=== PATIENT | female | born 1970 | race Caucasian/White ===

== ENCOUNTER 2017-12-02 22:49 | Observation (INO) | payer SELFPAY ==
[2017-12-02 22:50] VITALS: BP 152/102; PULSE 75; RESP 14; TEMP 36.7; O2SAT 100; BMI 28.0
[2017-12-02 23:16] VITALS: PULSE 72; RESP 15; O2SAT 99
[2017-12-02] MEDS: 0.9% Normal Saline 1,000 ML 1000 ML IV (23:22)
[2017-12-02 23:34] LABS: Absolute Lymphocyte Count 2.65 X10^3/ul (0.83-4.51); Absolute Neutrophil Count 5.4 X10^3/uL (2.0-7.7); Basophil# 0.07 X10^3/uL; Basophil% 0.8 % (0-1); Eosinophils% 1.1 % (0-5); Hematocrit 34.9 % (37-47); Hemoglobin 11.5 g/dl (12.0-15.0); Lymphocyte # 2.65 X10^3/ul (4.0); Lymphocyte % 29.5 % (19-41); Mean Corpuscular Hgb 29.3 pg (27.0-32.0); Mean Corpuscular Volume 88.8 fL (81-99); Mean Platelet Vol. 12.2 fl (6.2-12.0); Monocyte# 0.79 X10^3/uL; Monocyte% 8.8 % (0-10); Neutrophil # 5.36 X10^3/uL (2.7-7.7); Neutrophil % 59.7 % (47-70); Platelet Count 169 K/mm3 (150-450); RBC Distribution Width CV 12.3 % (11.6-14.6); RBC Distribution Width SD 38.8 fl (35.1-43.9); Red Blood Count 3.93 M/mm3 (4.2-5.4)
[2017-12-02 23:43] LABS: POSITIVE COUNT NO; POSITIVE DIFFERENTIAL NO; POSITIVE MORPHOLOGY NO
[2017-12-02 23:47] LABS: ALB/GLOB Ratio 1.1 RATIO (0.9-2.4); AST(SGOT) 7 U/L (15-37); Alanine Aminotransfer ALT/SGPT 21 U/L (13-56); Albumin, Serum 3.8 g/dL (3.2-5.0); Alkaline Phosphatase 64 U/L (45-117); Anion Gap 7 (5-15); BUN 19 mg/dL (7-18); BUN/Creat Ratio 27.1 RATIO (10-20); Calcium,Total 8.4 mg/dL (8.5-10.1); Chloride 102 mmol/L (98-107); EST Glomerular Filtration Rate 95 mL/min (>60); Est Glom Filt Rate - Afr Amer 115 mL/min (>60); Estimated Creatinine Clearance 82.19 ml/min; Globulin 3.4 g/dL (2.2-4.2); Glucose 95 mg/dL (74-106); Lipase 137 U/L (73-393); Potassium 3.7 mmol/L (3.5-5.1); Protein, Total 7.2 g/dL (6.4-8.2); Sodium Level 137 mmol/L (136-145)
[2017-12-03] VITALS (16 sets, daily range): BP systolic 134–179; BP diastolic 77–104; PULSE 69–100; RESP 14–20; TEMP 36.1–37.1; O2SAT 14–100; BMI 28.0; BMI 28.8
[2017-12-03] MEDS: Ketorolac 30 MG/ML Syringe IV (00:39)
--- NOTE | 2017-12-03 01:01 | CT_ITS ---
STUDY: CT ABDOMEN AND PELVIS WITH CONTRAST REASON FOR EXAM: Female, 47 years old. Epigastric pain RADIATION DOSAGE (If Supplied By Facility): CTDIvol = ( 11.73 ) mGy, DLP = ( 674.92 ) mGycm TECHNIQUE: Transaxial images were obtained from the dome of the diaphragm to the symphysis pubis without oral contrast. 100ML ml of Isovue 300 contrast was administered. Sagittal and coronal images were reconstructed. Individualized dose optimization techniques were used for this CT. COMPARISON: 12/12/2015 FINDINGS: Mild dependent atelectasis versus scar formation at the lung bases. The visualized portions of the heart are within normal limits. Normal liver. Mild distention of the gallbladder with a small amount of pericholecystic fluid. Mild intrahepatic bile duct dilatation. Normal spleen. Normal pancreas. Normal bilateral adrenal glands. Hypoattenuated lesions of the lateral right lower and mid left renal poles, too small to characterize. Ureters are normal. Normal visualized stomach. Normal small intestine. Normal colon. The appendix is visualized and appears normal. Normal abdominal aorta. Normal inferior vena cava. Normal retroperitoneum. Normal urinary bladder. Uterus surgically absent. There is a 3.4 cm hypoattenuated lesion associated with the right adnexa. Trace free pelvic fluid. Normal abdominal wall. Normal osseous structures. CT/Abdomen/Pelvis W IV Cont ONLY IMPRESSION: 1. Mild distention of the gallbladder with subtle pericholecystic fluid, potentially representing acute cholecystitis. Dedicated right upper quadrant ultrasound imaging is recommended for further characterization. 2. Hypoattenuated lesions within both kidneys, too small to definitively characterize but likely representing cysts. MR imaging could be obtained for further characterization. 3. 3.4 cm right ovarian cyst with trace amount of free pelvic fluid. Electronically Signed: Kevin Beck MD at 2:29 EST Tel , Service support ,
--- NOTE | 2017-12-03 02:36 | US_ITS ---
STUDY: ULTRASOUND GALLBLADDER REASON FOR VISIT: Female, 47 years old. Abdominal pain TECHNIQUE: Ultrasound evaluation of the gallbladder was performed with real-time and static cervantes-scale imaging. TECHNICAL QUALITY: Adequate. COMPARISON: None. FINDINGS: There is pericholecystic fluid collection around the gallbladder but there are no gallstones. The gallbladder wall measures 2.4 mm. The lumbar duct is 5.8 mm in diameter. There is no choledocholithiasis. The right kidney is normal. . US/Gallbladder IMPRESSION: Pericholecystic fluid collection. No gallstone. Possible acalculous cholecystitis Electronically Signed: Ty Schofield, at 4:08 EST Tel , Service support ,
[2017-12-03] MEDS: Ondansetron 4 MG/2 ML Vial IV ×3 (03:17→21:41)
--- NOTE | 2017-12-03 05:10 | ED.VISSUMM ---
- ER Visit Summary Date of Service: 12/03/17 Chief Complaint: Abdominal pain History of Present Illness: The patient is a 47 F who presents with abdominal pain. It is been present for 3 days. She complains of intermittent burning epigastric abdominal pain. She currently reports it as severe. It is worse with eating. She denies any nausea vomiting diarrhea. She denies fever. She denies any urinary symptoms. She states her symptoms are usually worse about 30 minutes after eating but it does not matter what she eats. She has had abdominal and stomach problems. She was previously placed on Prilosec but is not taking it anymore. Physical Examination: Afebrile vitals are unremarkable Moist mucous membranes Patient appears comfortable in no distress Heart regular rate and rhythm Lungs are clear Abdomen soft nondistended she does have some mild epigastric and right upper quadrant tenderness she does not have a Bernardo sign or Rovsing sign no guarding no rebound Test Results: CBC CMP lipase unremarkable. CT of the abdomen and pelvis shows mild gallbladder distention and subtle pericholecystic fluid. Right upper quadrant ultrasound shows pericholecystic fluid collection but no calculi normal gallbladder wall and common bile duct. Emergency Department Course and Treatment: The patient reports 10 out of 10 pain she actually was laughing while she said this and appears very comfortable. Initially with the patient's complaint of burning epigastric abdominal pain and previous diagnosis of GERD she was treated with a GI cocktail. However she reported no improvement. Point laboratory studies were added on patient was given IV Toradol. She had moderate improvement of symptoms. She had a normal right upper quadrant ultrasound 2 years ago with somewhat similar symptoms. She was initially sent for a CT. This did show some pericholecystic fluid so she was sent for right upper quadrant ultrasound which shows fluid but otherwise unremarkable. The patient has been joking with nursing staff and calling out from her room during her period of observation here. I did speak to general surgery client solutions specialist who will evaluate the patient here in the emergency department for further management. Treatment Plan: [] Disposition: Pending surgical consultation Impression: Right upper quadrant and epigastric abdominal pain Pericholecystic fluid This note was generated with [employer] dictation software. It may contain incorrect words, spelling, and punctuation that were not noted in review of the chart prior to signing ED Disposition - Plan for ED Patient: Chief Complaint: Abd Pain Referrals: Albin Padilla MD [Primary Care Provider] -
--- NOTE | 2017-12-03 06:05 | NURSING ---
dr hinton notified pt pain is 6 no orders given
--- NOTE | 2017-12-03 06:14 | PCM.HP.STD ---
Problem List (1) Acute acalculous cholecystitis Status: Acute History of Present Illness Date of Admission: 12/03/17 The patient is a 47 year old F who presents with 3 day history with severe epigastric pain right upper quadrant pain. She states that she has had problems with postprandial discomfort for many years. She had a laparoscopic-assisted vaginal hysterectomy performed [address] Wesley. The patient states that subsequent to that she has been having problems with postprandial discomfort. Records demonstrate that she has had previous emergency room visits for epigastric pain and previous ultrasound and testing if it has been unremarkable. On today's visit her CBC is unremarkable other than for a mild anemia of 11. Her liver function tests are normal. CT scan suggested fluid around the gallbladder. Ultrasound confirmed fluid around the gallbladder. There is a concern about possible acalculous cholecystitis. The patient is complaining of epigastric right upper quadrant pain with radiation to her back. She states that she has incessant nausea and epigastric pain. She states that she has seen Dr. Padilla in the past and is been placed on previous courses of proton pump inhibitors. The patient states that that provides absolutely no improvement. Patient states that she has not had health insurance to pursue definitive management. She has not been seen by gastroenterology. Currently she states that her pain is been ongoing for 3 days. So severe in the epigastrium that she had to crawl on all fours not able to find a comfortable position. She points to the epigastric and right upper quadrant area with radiation to the back. Although being given a GI cocktail and narcotics she is still in discomfort. She had a previous hospitalization January 22, 2017 with similar problems but etiology not identified. She states that currently she is not a tobacco user. There are records of previous use. 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 Denies: Hematochezia, Melena Genitourinary: Denies: Dysuria Gynecological: Denies: Breast symptoms Skin: Denies: Dryness Neurological: Denies: Balance problems Psychiatric: Reports: Anxiety VTE Information - Inpt Only VTE Present on Admission: No Patient Problems: Active and Suspected Problems Acute acalculous cholecystitis (Acute) - Physical Exam General: Alert, Oriented x3 HEENT: Atraumatic Oral: Moist Mucosa Neck: Supple Lungs: Clear to auscultation Cardiovascular: Regular rate, Regular Rhythm Abdomen: Bowel Sounds Present, Soft, Tender Extremities: No clubbing Skin: No rashes Musculoskeletal: No Tenderness to Palpation of Joints or Extremities Lymphatic: No Cervical, Supraclavicular, or Inguinal Adenopathy Neurological: Cranial nerves II-XII grossly intact Vital Signs Temp Pulse Resp BP Pulse Ox 98.2 F 76 17 167/100 H 97 12/03/17 05:53 12/03/17 05:53 12/03/17 05:53 12/03/17 05:53 12/03/17 05:53 Oxygen Delivery Method Room Air Weight: 158 lb Body Mass Index (BMI) 28.0 Laboratory Tests Past 24 Hrs 12/02/17 12/02/17 23:24 23:24 WBC 9.0 RBC 3.93 L Hgb 11.5 L Hct 34.9 L MCV 88.8 MCH 29.3 MCHC 33.0 RDW 12.3 RDW Differential 38.8 Plt Count 169 MPV 12.2 H Immature Gran % (Auto) 0.100 Neut % (Auto) 59.7 Lymph % (Auto) 29.5 [place] % (Auto) 8.8 Eos % (Auto) 1.1 Baso % (Auto) 0.8 Absolute Neuts (auto) 5.4 Absolute Lymphs (auto) 2.65 Total Counted Not Reportable Sodium 137 Potassium 3.7 Chloride 102 Carbon Dioxide 28.0 Anion Gap 7 BUN 19 H Creatinine 0.70 Estim Creat Clear Calc 82.19 Est GFR (MDRD) Af Amer 115 Est GFR (MDRD) Non-Af 95 BUN/Creatinine Ratio 27.1 H Glucose 95 Calcium 8.4 L Total Bilirubin 0.20 AST 7 L ALT 21 Alkaline Phosphatase 64 Total Protein 7.2 Albumin 3.8 Globulin 3.4 Albumin/Globulin Ratio 1.1 Lipase 137 Assessment/Plan Active and Suspected Problems Acute acalculous cholecystitis (Acute) 47-year-old female who for years has had postprandial epigastric pain right upper quadrant pain nausea vomiting. She was even hospitalized a year ago. Despite the utilization of proton pump inhibitors she is received no relief. On this presentation she again has postprandial epigastric right upper quadrant pain with radiation to her back. Although white count is normal she does have abnormal CT scan and abnormal gallbladder gallbladder ultrasound showing pericholecystic fluid though no gallstones. Her symptoms and presentations however due for acute acalculous cholecystitis. I am recommending to her a left scopic cholecystectomy with selective angiography. She is aware of the technique, benefits, risks and alternatives. Absolutely no guarantees of success have been offered. The patient is aware that it is possible that she continues to have epigastric postprandial discomfort post procedure. On this presentation however there appears to be solid findings suggesting gallbladder disease whereas previously no distinct pathology could be identified. As proton pump inhibitors have not assisted her at all in the past I believe that it is likely her gallbladder in etiology. She has had an opportunity to ask and have questions answered. We will proceed as or timing permits. Khris Pink M.D., F.A.C.S.
--- NOTE | 2017-12-03 06:51 | NURSING ---
report sent. patria said ok at shift change
[2017-12-03] MEDS: HYDROmorphone 1 MG/ML Syringe IV ×3 (06:59→14:05)
--- NOTE | 2017-12-03 07:30 | GALL_PTH ---
PATIENT: FARZANA ROME LOC: MS2 U#:[id number] AGE/SX: 47/F ROOM: [facility] [id number] RE12/03/[address]: Dr. Khris Pink MD : 1970 BED: 1 DIS: 12/04/2017 SPEC #: [id number] RECD: 12/04/17 09:00 STATUS: DONALD MARY JO #: [id number] MATT: 12/03/17 07:[address]: Khris Pink DEPT: SURGICAL PATHOLOGY RECD BY: Kevin Wiley ENTERED: 12/04/17 09:01 SP TYPE: JERRY APONTE DR: Dr. Albin Padilla MD Tissues: Gallbladder, NOS Procedures: Surgery Specimen Level III HEADER OPERATION: Laparoscopic cholecystectomy with IOC PRE-OP DIAGNOSIS: Acute cholecystitis TISSUE SUBMITTED: Gallbladder MICROSCOPIC DIAGNOSIS Gallbladder: Mild chronic cholecystitis. No stones are identified in the container or in the gallbladder. AM:frank 12/07/17 MICROSCOPIC DESCRIPTION Slides are reviewed. GROSS DESCRIPTION Received is one container labeled with the patient's name and designated gallbladder. The specimen consists of a gallbladder measuring 9 cm in length and up to 4 cm in diameter. The external surface is pink-johnson, smooth and glistening for the most part. Focally it is granular, hemorrhagic and contains cautery artifact. The gallbladder contains green-yellow mucoid bile. No stones are identified in the container or in the gallbladder. The mucosa is bile-stained and without any mass lesions. The gallbladder wall measures up to 0.2 cm in thickness. 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 / SJ:rg 12/04/17 TC:3 [facility]: [id number]
[2017-12-03] MEDS: Lactated Ringers 1,000 ML 100 ML IV ×2 (08:15→19:14)
[2017-12-03] MEDS: Cefazolin 1 GM/50 ML BAG IV ×2 (08:15→14:10)
[2017-12-03] MEDS: 0.9% NaCl Peripheral Flush Adult/Peds IV (10:55)
--- NOTE | 2017-12-03 11:33 | NURSING ---
Addendum entered by Lizz Zavala 12/03/17 15:04: updated report called to [facility] in [facility]. 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 Original Note: pt to get picked up for surgery at 1130. pt informed and she notified her boyfriend. second chg bath completed. pt still with nose ring in place, will remove in [facility] prior to surgery. also has earring to L inner ear which cannot be removed. jewelry refusal form signed and on chart. report called to [facility] and they are aware of both pieces of jewelry. 1400 dose of Ancef sent down with pt.
--- NOTE | 2017-12-03 11:56 | PCA ---
Received call from Amb[facility] in [facility], stating pt surgery is not until 1615 and pt will be picked up at 1500.
--- NOTE | 2017-12-03 15:48 | CASEMGMT ---
SW attempted to meet w/pt regarding self pay status, however pt is off the floor having surgery. SW will speak w/pt tomorrow. ERICK Baptiste, CERTIFIED PEST CONTROL TECHNICIAN
--- NOTE | 2017-12-03 16:00 | RAD_ITS ---
STUDY: INTRAOPERATIVE CHOLANGIOGRAM. REASON FOR EXAM: Female, 47 years old. Laparoscopic cholecystectomy. FLUOROSCOPY TIME (if supplied): (24.5 seconds) minutes/seconds TECHNIQUE: And intraoperative glandular was performed by the surgeon. Imaging was submitted. COMPARISON: None. FINDINGS: The intrahepatic ducts are unremarkable. The common bile duct is not dilated. There is narrowing of the distal portion of the common bile duct as it enters the duodenum. RAD/Cholangiogram/ O R,Initial IMPRESSION: Narrowing of the distal portion of the common bile duct although there is contrast entering the duodenum. Electronically Signed: Nicho Ortiz MD at 8:46 EST Tel [phone], Service support ,
[2017-12-03] MEDS: Bupivacaine 0.25% 30 ML Vial (16:08)
--- NOTE | 2017-12-03 17:06 | PCM.DC.GS ---
Discharge Diet: Light diet - advance as tolerated - if you have questions about your diet instructions, please talk to you doctor. Discharge Activity: May Not Drive - for 1 week or while taking narcotic pain medicine. May shower in (days): 1 Lifting Restrictions: 10 pounds Call your doctor if your incision/area has: Continuous Slow Oozing, Sudden Increased Bleeding, Increased Pain/ Swelling, Increased Redness, Foul Smelling Discharge Call your doctor if you observe: Fever of 101 or Higher Suture Line Care: Avoid Pulling/Pushing, Avoid Pinching/Bending Additional Dressing/Incision Instructions:: Change or remove dressing in 4 days. Leave steri-strips in place for 1 week. Allergies/Adverse Reactions: Allergies atomoxetine [From Strattera] Allergy (Verified 12/02/17 22:53) Chest tightness Medications to take at Discharge Lisinopril [Zestril] 5 mg PO DAILY 12/12/15 Citalopram [Celexa] 10 mg PO DAILY 12/02/17 Oxybutynin [Ditropan] 5 mg PO DAILY 12/02/17 Primary Care Physician: Albin Padilla MD [Primary Care Provider] - Please Follow Up With: Khris Pink MD - [phone] When: Call to make an appointment to be seen in about 10 days.
--- NOTE | 2017-12-03 17:06 | PCM.OPRPT ---
Problem List (1) Acute acalculous cholecystitis Status: Acute Report of Operation Date of Procedure: 12/03/17 Pre-Operative Diagnosis: Acute acalculous cholecystitis Post-Operative Diagnosis: Same Surgery/Procedure Performed:: Laparoscopic cholecystectomy with cholangiography Description of Surgical Findings:: Timeout and informed consent was obtained. 47-year-old gent was taken out from placement table underwent general endotracheal intubation anesthesia. She was severely nauseated preprocedure. Ancef had been given therapeutically preoperatively. Her abdomen was sterilely prepped and draped. Neuro-0.25% Marcaine was used as local anesthetic. Throughout the procedure total 30 cc was used. Skin sites were treated with local prior to procedure. Because of keloiding at a previous vertical infraumbilical midline incision I elliptically excised that small pieces scar. I then inspected it was consistent with scar and it was discarded. Sharp dissection was carried down through the substance tissue. Holding sutures of 0 Vicryl placed direct access was gained to the abdomen. Centimeter trocar was inserted. 10 lap scope inserted. No evidence of trocar injury. Under direct visitation five-minute ports were placed in the epigastric mid abdomen right upper quadrant. The abdomen was rapidly inspected small bowel large bowel grossly appear to be unremarkable the gallbladder itself did appear to have an edema plane. There is minimal fluid at the base. Blunt dissection was instituted at the infundibulum until clearly the clip critical view was achieved. The cystic duct cystic artery nicely achieved. A Hem-o-darshan clip was placed on the cystic duct and then through a 14-gauge Angiocath and cholangiogram catheter was inserted. Fluoroscopically controlled claims grams were obtained there was spasm distally and what was felt to be likely a small air bubble. No obstruction to flow. The cholangiogram catheter was removed and 2 additional Hem-o-darshan clips were placed on the cystic duct prior to transecting it. The cystic artery was clipped proximally distally prior to transecting it. The posterior cystic artery was secured as well with a Hem-o-darshan clip. The gallbladder was carefully and tediously dissected free from the liver bed. Complete hemostasis was intact. There was no bile spillage. The gallbladder was placed in a retrieval bag. The right upper quadrant irrigated and aspirated free of excess fluid. The gallbladder was exited the umbilicus. Trochars were removed under visualization. The abdomen was allowed to deflate of the CO2. The fascia at the umbilicus approximated with digital Vicryl figure 8 suture. Skin edges approximated up to 4 Monocryl subdermal stitches. Steri-Strips Telfa and OpSite dressings applied. Sponge instrument and needle counts were reported to the surgeon to be correct. Blood loss was minimal. Specimens include gallbladder. Drains none. Complications none. Blood loss minimal. Khris Pink M.D., F.A.C.S. Type of Anesthesia:: General Anesthesiologist: Hina Brantley
--- NOTE | 2017-12-03 19:05 | NURSING ---
Pt back to floor from surgery.
[2017-12-04 02:36] VITALS: BP 115/62; PULSE 88; RESP 18; TEMP 37.3; O2SAT 93
[2017-12-04] MEDS: Lactated Ringers 1,000 ML 100 ML IV (04:48)
--- NOTE | 2017-12-04 06:07 | PCM.PN.SRG ---
Patient Problems: Active and Suspected Problems Acute acalculous cholecystitis (Acute) Subjective: Pt has no significant pain and no nausea - Physical Exam Abdomen: Soft, Non Tender, Hypoactive Bowel Sounds Vital Signs Temp Pulse Resp BP Pulse Ox 99.1 F 88 18 115/62 93 12/04/17 02:36 12/04/17 02:36 12/04/17 02:36 12/04/17 02:36 12/04/17 02:36 Oxygen Flow Rate 2 Oxygen Delivery Method Room Air Intake and Output for Last 24 Hours 12/02/17 12/03/17 12/04/17 23:59 23:59 23:59 Intake Total 2581 / 3204 Balance 2581 / 3204 Assessment/Plan Active and Suspected Problems Acute acalculous cholecystitis (Acute) Will discharge today Good progress
--- NOTE | 2017-12-04 08:49 | CASEMGMT ---
SW spoke w/pt as she is listed as self pay. Pt states she will have insurance next week. SW gave pt resources for 211, [employer], Hanna Stafford, and other prescription assistance programs. Pt also already participates in the [facility] assist program. Shiloh from Financial services then came in to review the hospital assistance programs. No further needs are anticipated. ERICK Baptiste, ADULT BASIC EDUCATION TEACHER
[2017-12-04] MEDS: Acetaminophen 325 MG Tablet 650 MG PO (09:26)
[2017-12-04 09:27] VITALS: BP 135/77; PULSE 85; RESP 18; TEMP 36.6; O2SAT 98
== END 2017-12-04 09:40 | disposition home or self-care (01) ==
LOC: ED 12-03 06:19 → SDC 12-03 06:24 → MS2 12-03 06:26 → SDC 12-03 18:08
PROVIDERS: Admitting Provider Surgery; Emergency Provider Emergency Medicine; Family Provider Family Medicine; PCP Family Medicine; Visit Provider Surgery
PROC: (CPT 47610; principal; 2017-12-03 07:10)
DX: K81.2 Acute cholecystitis with chronic cholecystitis (principal); K21.9 Gastro-esophageal reflux disease without esophagitis; D64.9 Anemia, unspecified; F41.1 Generalized anxiety disorder; I10 Essential (primary) hypertension; Z79.899 Other long term (current) drug therapy; Z72.0 Tobacco use; F32.9 Major depressive disorder, single episode, unspecified
CPT/HCPCS: 47563; 74177; 74300; 76000; 76705; 80053; 83690; 85025; 88304; 96361; 96365; 96366; 96375; 96376; 99218; 99284; J7030; J7120; Q9967; A4216; G0378; J2405

== ENCOUNTER → 2019-08-02 | Outpatient (CLI) | payer BC, SELFPAY ==
[2019-08-02 13:59] VITALS: BMI 28.8
--- NOTE | 2019-08-02 14:06 | RAD_ITS ---
STUDY: X-RAY - LEFT HAND REASON FOR EXAM: Female, 49 years old. Pain at the base of the thumb following injury. TECHNIQUE: 3 view(s) of the hand. COMPARISON: None. FINDINGS: Normal radiocarpal articulation. Normal distal radioulnar joint. Normal visualized carpal bones. Normal carpal articulations Normal carpometacarpal articulation of the thumb. Normal second through fifth carpometacarpal joints. Normal metacarpi. Normal metacarpophalangeal joint of the thumb. Normal interphalangeal joint of the thumb. Normal proximal and distal phalanges of the thumb. Normal metacarpophalangeal joints of the second through fifth fingers. Normal proximal and distal interphalangeal joints of the second through fifth fingers. Normal phalanges of the second through fifth fingers. The soft tissue structures are unremarkable. RAD/Hand Min 3 Views IMPRESSION: Normal x-ray examination of the hand. Electronically Signed: Nicho Ortiz, at 15:50 EDT , Service support ,
== END | disposition home or self-care (01) ==
LOC: HPRAD 14:06
PROVIDERS: Family Provider Family Medicine; PCP Family Medicine; Referring Provider Physician Assistant Surgical; Visit Provider Physician Assistant Surgical
DX: S60.222A Contusion of left hand, initial encounter (principal)
CPT/HCPCS: 73130

== ENCOUNTER 2020-02-23 12:30 | Outpatient (RCR) | payer OTHER, SELFPAY ==
[2020-02-03 08:46] VITALS: BMI 28.8
--- NOTE | 2020-02-14 17:23 | HP.OTEVAL_ITS ---
Patient's Visit Information FARZANA ROME is a 49 year old F, referred to Occupational Therapy by QUINTON Veronica, with a diagnosis of L elbow strain. Date of Evaluation: 02/14/20 Occupational Therapist: Ketty Little - Subjective Subjective: Pt seen for initial occupational therapy evaluation for L elbow strain that occured 02/02/20 while at work. 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 Right hand dominent. Pt states works with [employer], not suppose to use L arm much right now per Dr. no lifting more than 5# or do repetitive movements. Job entails repeptive job with both hands, has assist with moving heavy task at work. Pt still at work on light duty. Pt completing BADL tasks independently on own with increased pain L elbow. - Pain L elbow pain 5 Pain Intensity Range: 6, 8 - Objective Objective/Observation: swollen L elbow, grimicing with movement L UE - ROM Shoulder: R WFL, L WFL Elbow: R 0/127' L 0/126' Wrist: R WFL, L WFL - Strength Senior Network Administrator: R 55#, L DNT Lateral Pinch: R 8#, L 10# Tripod Pinch: R 6#, L 4# - Edema Other: slight edema L elbow - Sensation Sensation Comments: numbness comes and goes in L hand up to shoulder. 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 Pt will demo L UE MMT 4/5 to complete work tasks independently by d/c from OT services. Goal:: Pt will demo no pain with movement greater than 1/10 by d/c from OT services Goal:: Pt will be educated on joint protection w/ good understanding and demo 100%x Goal:: Pt will be educated on L UE HEP with good undersatnding and demo 100%x - Rehabilitation General Assessment: Pt seen for initial occupational therapy evaluation for L elbow strain that occured 02/02/20 while at work. 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 Pt demo decrease strength and increase pain rest/movment L UE indicating a need for skilled OT interventions to address pain L UE, increase strength when appropraite, educate on use of modalities, HEP, joint protection return to work doing prior job 3x/wk x 4-6wks Rehabilitation Potential: Good - Anticipated Interventions Anticipated Interventions: Strengthening, Edema Control, Massage, Modalities, Orthoses, Joint Protection/Energy Conservation, ADL Training, Education re Diagnosis, Education re Self-Bandaging Techniques, Education re Self Massage Techniques, Education re Correct Donning Tech,Care&Wearing Sched Comp Garments, Home Program - Visit Plan Frequency: 3x /Week Duration: 4-6 Weeks General Plan: Pt demo decrease strength and increase pain rest/movment L UE indicating a need for skilled OT interventions to address pain L UE, increase strength when appropraite, educate on use of modalities, HEP, joint protection 3x/wk x 4-6wks TEXT: Thank you for the opportunity to evaluate your patient. For Medicare and Medicare HMO plans, please review the plan of care and approve it. It will need to be FAXED BACK to us at [phone] for Medicare purposes. Please let me know if there are questions or concerns regarding this plan of care. Physician Signature: Date:
== END 2020-02-23 19:00 | disposition home or self-care (01) ==
LOC: OT 12:30
PROVIDERS: Referring Provider Physician Assistant Surgical; Visit Provider Physician Assistant Surgical
DX: S46.912D Strain of unspecified muscle, fascia and tendon at shoulder and upper arm level, left arm, subsequent encounter (principal)
CPT/HCPCS: 97140; 97165; 97166; 97530

== ENCOUNTER → 2021-03-21 07:11 | Outpatient (CLI) | payer BC, SELFPAY ==
[2020-02-24 09:01] VITALS: BMI 28.8
--- NOTE | 2021-03-21 07:18 | BI_ITS ---
MAMMOGRAPHY - BILATERAL SCREENING REASON FOR EXAM: Female, 50 years old. Routine annual screening examination. PERTINENT HISTORY: Non-contributory. TECHNIQUE: Digital bilateral breast krystle (3D mammographic acquisition) in the CC and MLO projections. 2-D mediolateral oblique (MLO) and craniocaudad (CC) views of both breasts were obtained. CAD: Full Field Digital Mammography with Computer Added Detection was performed. COMPARISON: Comparison is made with prior chest examination of 08/18/2019. FINDINGS: Breast Composition: The breasts are extremely dense, which lowers the sensitivity of mammography. There are no dominant masses or suspicious calcifications. No other significant abnormalities are identified. There has been no significant change since the prior study. BI/SCRN MAMM (CAD)W/KRYSTLE BILAT IMPRESSION: Stable bilateral screening mammogram. Yearly follow-up mammogram recommended. (A) ASSESSMENT CATEGORY: BIRADS Category 1: Negative. A letter regarding these results will be sent to the patient by the facility within 30 days. Approximately 10% of breast cancers are not detected by mammography. A normal mammogram should not delay biopsy of a clinically suspicious abnormality. [id number] Electronically Signed: Nicho Ortiz MD at 8:01 EDT , Service support ,
== END ==
PROVIDERS: PCP Nurse Practitioner; Referring Provider Nurse Practitioner; Visit Provider Nurse Practitioner
DX: Z12.31 Encounter for screening mammogram for malignant neoplasm of breast (principal)
CPT/HCPCS: 77063; 77067

== ENCOUNTER → 2021-06-10 14:33 | Outpatient (CLI) | payer BC, SELFPAY ==
--- NOTE | 2021-06-10 14:52 | CT_ITS ---
INDICATION: ABD PAIN EXAMINATION: CT Abdomen And Pelvis W/ Contrast Injection TECHNIQUE: Helically acquired images were obtained of the abdomen and pelvis after IV contrast. A radiation dose optimization technique was used for this scan. IV Contrast dosage and agent: Oral and amp; IV Gastrografin and amp; 100mL Isovue-370 Oral contrast: Yes. COMPARISON: 12/03/2017. FINDINGS: Visualized lung bases: Unremarkable Liver: Unremarkable Gallbladder: Surgically absent. Spleen: Unremarkable Pancreas: Unremarkable Adrenal Glands: Unremarkable Kidneys: Scattered too small to characterize subcentimeter hypodensities bilaterally. Vasculature: Unremarkable GI Tract: Unremarkable Lymphadenopathy: None Peritoneum: No ascites. Bladder: Unremarkable Reproductive organs: Unremarkable Bones/Soft tissues: No suspicious osseous or soft tissue lesions CT/Abdomen/Pelvis WITH Contrast IMPRESSION: No acute abnormalities in the abdomen or pelvis. Electronically Signed: Viraj Bradshaw MD at 18:07 EDT Tel , Service support ,
[2021-06-10 15:18] LABS: Absolute Lymphocyte Count 2.42 X10^3/uL (0.83-4.51); Absolute Neutrophil Count 4.8 X10^3/uL (2.0-7.7); Basophil# 0.03 X10^3/uL; Basophil% 0.4 % (0-1); Eosinophil# 0.07 X10^3/uL; Eosinophils% 0.9 % (0-5); Hematocrit 38.4 % (37-47); Lymphocyte # 2.42 X10^3/ul (0.83-4.51); Lymphocyte % 30.7 % (19-41); Mean Corp Hgb Conc 33.9 g/dL (32-36); Mean Corpuscular Hgb 30.5 pg (27.0-32.0); Mean Corpuscular Volume 90.1 fL (81-99); Mean Platelet Vol. 12.2 fl (6.2-12.0); Monocyte# 0.58 X10^3/uL; Monocyte% 7.4 % (0-10); NRBC Flagged by Analyzer 0 % (0-5); Neutrophil # 4.75 X10^3/uL (2.7-7.7); Neutrophil % 60.3 % (47-70); Platelet Count 265 K/mm3 (150-450); RBC Distribution Width CV 12.4 % (11.6-14.6); RBC Distribution Width SD 40.6 fl (35.1-43.9); Red Blood Count 4.26 M/mm3 (4.2-5.4); White Blood Count 7.9 K/mm3 (4.4-11.0)
[2021-06-10 15:42] LABS: ALB/GLOB Ratio 1.1 RATIO (0.9-2.4); AST(SGOT) 12 U/L (15-37); Alanine Aminotransfer ALT/SGPT 22 U/L (13-56); Albumin, Serum 3.8 g/dL (3.2-5.0); Alkaline Phosphatase 59 U/L (45-117); Anion Gap 3 (5-15); BUN 17 mg/dL (7-18); BUN/Creat Ratio 21.4 RATIO (10-20); Chloride 106 mmol/L (98-107); EST Glomerular Filtration Rate 81 mL/min (>60); Est Glom Filt Rate - Afr Amer 98 mL/min (>60); Globulin 3.6 g/dL (2.2-4.2); Glucose 95 mg/dL (74-106); Potassium 3.7 mmol/L (3.5-5.1); Protein, Total 7.4 g/dL (6.4-8.2); Sodium Level 139 mmol/L (136-145)
== END ==
PROVIDERS: PCP Nurse Practitioner; Referring Provider Nurse Practitioner; Visit Provider Nurse Practitioner
DX: R10.9 Unspecified abdominal pain (principal)
CPT/HCPCS: 36415; 74177; 80053; 85025; Q9967; A4216

== ENCOUNTER 2022-11-12 09:05 | Observation (INO) | payer OTHER, SELFPAY ==
[2022-11-12] VITALS (15 sets, daily range): BP systolic 119–191; BP diastolic 71–115; PULSE 70–89; RESP 12–23; TEMP 36.1–36.7; O2SAT 94–100; BMI 28.9; BMI 28.3
--- NOTE | 2022-11-12 09:24 | ED.VIS.CHEST ---
HPI History of Present Illness Chief Complaint: Chest Pain Informant: patient Narrative Narrative: Patient is a 52-year-old female with history of anxiety, ADHD, tobacco use, hypertension and left shoulder injury presenting with chest pain. Patient states she has been having some intermittent mild chest pain and back pain for the past week in the morning when she woke up. Initially she thought was related to a shoulder injury she sustained in her left shoulder about a year ago. This morning she developed more severe chest pain that radiates to her left arm. Is a sharp pain that is intermittent. It would last for seconds at a time. She also states is like a pressure. It is worse with movement of her arm, chest or deep breathing. She denies any swelling of her legs, history of DVT or PE. She checked her blood pressure at home and then at work and it was elevated at 180 systolic. States her blood pressure is usually not that high. She came in from work for further evaluation. Patient denies any recent medication changes. Denies any new physical activities. States she has had some type of cardiac evaluation in the past but it has been a long time. Did not take any aspirin today. CVD Risk Factors: Positive for Hypertension and Smoking PE Risk Factors: Negative for Recent Travel/Surgery, Recent Immobilization, Prior DVT or PE, Cancer or OCP + Smoking + >/=35 PFSH PFSH Medical History History of Hypertension SUDDEN WEIGHT LOSS Home Medications lisinopril 5 mg tablet 5 mg PO QHS BLOOD PRESSURE 12/12/15 [History Last Taken 11/11/22] citalopram 20 mg tablet 10 mg PO QHS DEPRESSION 12/02/17 [History Last Taken 11/11/22] oxybutynin chloride 5 mg tablet 5 mg PO QHS OVER ACTIVE BLADDER 12/02/17 [History Last Taken 11/11/22] Lactobacillus acidophilus 1 cap PO DAILY PROBIOTIC 11/12/22 [History Last Taken 11/10/22] dextroamphetamine-amphetamine ER 30 mg 24hr capsule,extend release (Adderall XR) 30 mg PO DAILY ADHD 11/12/22 [History Last Taken 11/06/22] hydroxyzine HCl 10 mg tablet 5 - 10 mg PO BID PRN SLEEP/ANXIETY 11/12/22 [History Last Taken Unknown] omeprazole 20 mg capsule,delayed release 20 mg PO DAILY PRN GERD 11/12/22 [History Last Taken Unknown] Allergy/AdvReac Type Severity Reaction Status Date / Time atomoxetine [From Strattera] Allergy Chest Verified 02/24/20 09:01 tightness sulfamethoxazole Allergy Nausea Verified 11/12/22 09:06 [From Bactrim] trimethoprim [From Bactrim] Allergy Nausea Verified 11/12/22 09:06 Surgical History History of cholecystectomy History of hysterectomy Social History Smoking Status: Light Smoker (<10/day) alcohol intake: current alcohol intake frequency: holidays/special occasions only ROS ROS ED Constitutional Constitutional ED: Denies chills or fever(s) Eyes Eyes: Denies change in vision ENT ENT ED: Denies rhinorrhea or sore throat Cardiovascular Cardiovascular: Reports as per HPI and chest pain; Denies palpitations Respiratory/Chest Respiratory/Chest: Denies cough, dyspnea or dyspnea on exertion Gastrointestinal Gastrointestinal: Denies abdominal pain, nausea or vomiting Genitourinary Genitourinary ED: Denies dysuria or hematuria Musculoskeletal Musculoskeletal: Denies arthralgias or myalgias Integumentary Denies rash Neurologic Neurologic: Reports paresthesias LUE; Denies headache(s) or weakness Psychiatric Psychiatric: Reports anxiety; Denies depression Hematologic/Lymphatic Hematologic/Lymphatic: Denies easy bleeding or easy bruising EXAM Physical Exam Const Vital Signs: 11/12/22 09:06 11/12/22 09:10 11/12/22 09:40 Temperature 97 F L Temperature Source Temporal Pulse Rate 89 Respiratory Rate 16 Respiratory Effort Normal Non-Labored Blood Pressure 191/103 H Blood Pressure Mean 132 Pulse Ox 100 Oxygen Delivery Method Room Air Room Air 11/12/22 09:37 11/12/22 11:27 11/12/22 12:05 Temperature Temperature Source Pulse Rate 77 73 Respiratory Rate 23 H 16 Respiratory Effort Blood Pressure 164/106 H 168/105 H Blood Pressure Mean 125 126 Pulse Ox 97 97 97 Oxygen Delivery Method Room Air Room Air 11/12/22 13:26 11/12/22 13:38 11/12/22 13:44 Temperature Temperature Source Pulse Rate 73 70 82 Respiratory Rate 16 Respiratory Effort Blood Pressure 169/115 H 156/95 H 165/86 H Blood Pressure Mean 133 Pulse Ox 97 Oxygen Delivery Method Room Air 11/12/22 13:52 11/12/22 14:00 Temperature Temperature Source Pulse Rate 75 74 Respiratory Rate 14 13 Respiratory Effort Blood Pressure 130/89 H 124/71 H Blood Pressure Mean 102 88 Pulse Ox 94 94 Oxygen Delivery Method Room Air Room Air Positive well nourished and well developed General Appearance ED: well developed and NAD HEENT Reports moist mucous membranes normocephalic and atraumatic Eyes PERRL and EOMs intact bilaterally Neck supple and no JVD Chest Wall inspection of chest normal Chest Narrative: Patient has tenderness of the left chest wall with direct palpation. This seems to reproduce her pain. Resp normal respiratory effort and clear to auscultation bilaterally Cardio regular rate, regular rhythm and no murmurs Peripheral Pulses: radial pulses present GI normal to inspection, nondistended, normoactive bowel sounds and soft to palpation Extremity normal to inspection General Extremety ED: Negative for edema or tenderness General Extremity: Negative for edema Neuro oriented x3 Sensorium / Orientation: awake and alert Motor Exam: Negative for general weakness Psych mental status grossly normal Mood & Affect: anxious Skin no rashes or lesions noted and no wounds Heart Score History: Slightly/Non-Suspicious ECG: Normal Age: >45 - <65 years Risk Factors: 1 or 2 Risk Factors Troponin: </= Normal Limit Score: 2 MDM MDM MDM Narrative Medical decision making narrative: Patient is evaluated for chest pain that started this morning. Chest pain seems atypical for ACS however she is quite hypertensive in the ER. She is given aspirin and then morphine for pain control. EKG does not show any ischemic changes. I independently reviewed patient's prior stress test from 02/02 which was negative. Cardiac work-up is largely negative. Her high sensitive troponin initially was 5 and then on repeat is 19. This is still a delta less than 20. D-dimer is normal and patient's only risk factor for pulmonary emboli is her age over 50s I do not think a CTA is indicated. Chest x-ray interpreted by myself as well as radiology does not show any acute process. No other significant laboratory abnormalities. Patient then starts develop some mild left upper quadrant abdominal pain and she is given a GI cocktail. She does not have any improvement of this. We did try nitroglycerin which did improve her pain and bring down her blood pressure. Due to this persistent pain that improved with nitroglycerin we will admit for further cardiac evaluation. Patient does have cardiac risk factors including hypertension and tobacco use. Patient is agreeable with this plan of care. Lab Data Attestation: I reviewed the patient's lab results. Labs: Laboratory Results - last 24 hr 11/12/22 11/12/22 11/12/22 09:30 09:30 09:30 WBC 6.9 RBC 4.41 Hgb 12.7 Hct 39.5 MCV 89.6 MCH 28.8 MCHC 32.2 RDW Std Deviation 39.5 RDW Coeff of Indira 12.0 Plt Count 187 MPV 11.7 Immature Gran % (Auto) 0.400 Neut % (Auto) 66.5 Lymph % (Auto) 23.6 [place] % (Auto) 8.2 Eos % (Auto) 1.0 Baso % (Auto) 0.3 Absolute Neuts (auto) 4.6 Absolute Lymphs (auto) 1.62 Nucleated RBC % 0 D-Dimer Quant (PE/DVT) < 0.27 L Sodium 138 Potassium 4.3 Chloride 106 Carbon Dioxide 29.0 Anion Gap 3 L BUN 17 Creatinine 0.79 Estim Creat Clear Calc 68.91 Est GFR (MDRD) Af Amer 98 Est GFR (MDRD) Non-Af 81 BUN/Creatinine Ratio 21.5 H Glucose 95 Calcium 9.1 Troponin I High Sens 5 11/12/22 12:15 WBC RBC Hgb Hct MCV MCH MCHC RDW Std Deviation RDW Coeff of Indira Plt Count MPV Immature Gran % (Auto) Neut % (Auto) Lymph % (Auto) [place] % (Auto) Eos % (Auto) Baso % (Auto) Absolute Neuts (auto) Absolute Lymphs (auto) Nucleated RBC % D-Dimer Quant (PE/DVT) Sodium Potassium Chloride Carbon Dioxide Anion Gap BUN Creatinine Estim Creat Clear Calc Est GFR (MDRD) Af Amer Est GFR (MDRD) Non-Af BUN/Creatinine Ratio Glucose Calcium Troponin I High Sens 19 Radiography Diagnostic Testing: Clinical Impression(s) from Imaging Studies Chest X-Ray 11/12/22 09:50 IMPRESSION: No acute abnormality is seen. Electronically Signed: Nicho Ortiz MD at 10:37 EST , Rhythm Strip Rhythm Strip: Sinus Rhythm Rate: 88 Ectopy: PVC(s) EKG Initial EKG: Attestation: I personally reviewed and interpreted this EKG as follows: Interpretation: Sinus Rhythm Comments: Normal sinus rhythm at a rate of 88 bpm with PVC present Normal [place] interval and QRS QTC [address] segments Discharge Plan Dx/Rx/DC Orders Clinical Impression: Chest pain, Tobacco use, Benign essential hypertension Disposition Disposition: Acute Care Hospital [facility] Discharge Date/Time: 11/12/22 14:38
[2022-11-12 09:40] LABS: Absolute Lymphocyte Count 1.62 X10^3/uL (0.83-4.51); Absolute Neutrophil Count 4.6 X10^3/uL (2.0-7.7); Basophil# 0.02 X10^3/uL; Basophil% 0.3 % (0-1); Eosinophil# 0.07 X10^3/uL; Hematocrit 39.5 % (37-47); Hemoglobin 12.7 g/dL (12.0-15.0); Lymphocyte # 1.62 X10^3/ul (0.83-4.51); Lymphocyte % 23.6 % (19-41); Mean Corp Hgb Conc 32.2 g/dL (32-36); Mean Corpuscular Hgb 28.8 pg (27.0-32.0); Mean Corpuscular Volume 89.6 fL (81-99); Mean Platelet Vol. 11.7 fl (6.2-12.0); Monocyte# 0.56 X10^3/uL; Monocyte% 8.2 % (0-10); NRBC Flagged by Analyzer 0 % (0-5); Neutrophil # 4.57 X10^3/uL (2.7-7.7); Neutrophil % 66.5 % (47-70); Platelet Count 187 K/mm3 (150-450); RBC Distribution Width SD 39.5 fl (35.1-43.9); Red Blood Count 4.41 M/mm3 (4.2-5.4); White Blood Count 6.9 K/mm3 (4.4-11.0)
[2022-11-12] MEDS: Aspirin 81 MG TAB.CHEW 324 MG PO (09:40)
--- NOTE | 2022-11-12 09:50 | RAD_ITS ---
STUDY: X-RAY CHEST REASON FOR EXAM: Female, 52 years old. Chest pain TECHNIQUE: PA and lateral views of the chest. COMPARISON: Comparison is made with prior chest radiograph dated 01/22/2017. FINDINGS: EKG electrodes are seen. The lungs are clear and expanded. There is no demonstrated pleural abnormality. Normal size heart. Normal mediastinum and pilo. Normal visualized pulmonary arteries. There is atherosclerotic tortuosity of the aortic arch and descending thoracic aorta. Normal visualized thoracic spine. Normal visualized ribs, clavicles, and shoulders. There is no demonstrated abnormality of the visualized soft tissue structures of the upper abdomen. RAD/Chest PA and Lateral IMPRESSION: No acute abnormality is seen. Electronically Signed: Nicho Ortiz MD at 10:37 EST ,
[2022-11-12 10:01] LABS: Anion Gap 3 (5-15); BUN 17 mg/dL (7-18); BUN/Creat Ratio 21.5 RATIO (10-20); Calcium,Total 9.1 mg/dL (8.5-10.1); Chloride 106 mmol/L (98-107); Creatinine, Serum 0.79 mg/dL (0.55-1.02); EST Glomerular Filtration Rate 81 mL/min (>60); Est Glom Filt Rate - Afr Amer 98 mL/min (>60); Estimated Creatinine Clearance 68.91 ml/min; Glucose 95 mg/dL (74-106); Potassium 4.3 mmol/L (3.5-5.1); Sodium Level 138 mmol/L (136-145); Troponin-I HS (w/2H Reflex) 5 pg/mL (3.0-54.0)
[2022-11-12 11:30] LABS: D-Dimer Quantitative (DVT/PE) < 0.27 FEU/ug/m (0.27-0.49)
[2022-11-12 11:35] LABS: Reflex Troponin-HS? (from REC) Y
[2022-11-12] MEDS: morphine 8 MG/ML Syringe 4 MG IV (11:38)
[2022-11-12 12:41] LABS: Troponin-I HS 19 pg/mL (3.0-54.0)
[2022-11-12] MEDS: Mag Hydrox/Al Hydrox/Simeth 30 ML UDC PO (12:47)
[2022-11-12] MEDS: Ketorolac 15 MG/ML Vial IV (12:48)
[2022-11-12] MEDS: Nitroglycerin SL (ED/IMG/CATH) 0.4 MG TABLET SL ×3 (13:38→13:50)
--- NOTE | 2022-11-12 13:58 | HP.PCM.HOS_ITS ---
HPI - General General Date of Admission: 11/12/22 Date of Service: 11/12/22 Chief Complaint: chest pain HPI Narrative FARZANA ROME, is a 52 F with a PMH as outlined who presents via the ED on 11/12/2022 with a complaint of chest pain. Chest pain as retrosternal and radiated to her left shoulder. She had been h aving the chest pain with a ssociated back pain intermittently for ! one week, adn worsened today. Chest pain was intermittent, with no aggravating or relieving factors. She also noted that her blood pressure was running high, in the 180s systolic. She denied any shortness of breath, palpitations, dizziness, neck pain, nausea, vomiting or diarrhea. REview of systems was otherwise negative. She denied any history of heart attack or DVT or PE. Vitals in the ED were BP of 124/71, OH of 74, RR of 13 and she was saturating at 94% on room air. CBC was unremarkable and chemistry was also unremarkable. Initial troponin was 5 and trended up to only 19. EKG showed no acute ST changes and D dimer was <0.27. She is being admitted to be managed for chest pain to rule out ACS. FORMERLY [facility], [facility]–1983 Medical History History of Hypertension SUDDEN WEIGHT LOSS Home Medications lisinopril 5 mg tablet 5 mg PO DAILY BLOOD PRESSURE 12/12/15 [History Last Taken 12/02/17 08:00] citalopram 20 mg tablet 10 mg PO DAILY DEPRESSION 12/02/17 [History Last Taken 12/01/17 22:00] oxybutynin chloride 5 mg tablet 5 mg PO DAILY OVER ACTIVE BLADDER 12/02/17 [History Last Taken 12/02/17 08:00] dextroamphetamine-amphetamine ER 30 mg 24hr capsule,extend release (Adderall XR) 30 mg PO DAILY 11/12/22 [History Last Taken Unknown] Allergy/AdvReac Type Severity Reaction Status Date / Time atomoxetine [From Strattera] Allergy Chest Verified 02/24/20 09:01 tightness sulfamethoxazole Allergy Nausea Verified 11/12/22 09:06 [From Bactrim] trimethoprim [From Bactrim] Allergy Nausea Verified 11/12/22 09:06 Surgical History History of cholecystectomy History of hysterectomy Social History Smoking Status: Light Smoker (<10/day) alcohol intake: current alcohol intake frequency: holidays/special occasions only ROS Review of Systems ROS Unobtainable: Denies due to encephalopathy Constitutional Constitutional: Denies anorexia, chills, fatigue, fever(s) or weakness Eyes Eyes: Denies change in vision ENT HEENT: Denies dysphagia, headache(s) or sore throat Cardiovascular Cardiovascular: Reports chest pain; Denies dyspnea on exertion, edema, lightheadedness, orthopnea, palpitations, rapid heart rate or syncope Respiratory/Chest Respiratory/Chest: Denies cough, dyspnea, shortness of breath at rest or shortness of breath with exertion Gastrointestinal Gastrointestinal: Denies abdominal pain, constipation, diarrhea, nausea or vomiting Genitourinary Genitourinary: Denies dysuria, nocturia or urinary frequency Musculoskeletal Musculoskeletal: Denies arthralgias or back pain Neurologic Neurologic: Denies confusion, dizziness, focal weakness, headache(s) or seizures Psychiatric Psychiatric: Denies anxiety Endocrine Endocrinology: Denies change in body appearance Vital Signs Vital Signs Vital Signs: 11/12/22 09:06 11/12/22 09:10 11/12/22 09:40 Temperature 97 F L Temperature Source Temporal Pulse Rate 89 Respiratory Rate 16 Respiratory Effort Normal Non-Labored Blood Pressure 191/103 H Blood Pressure Mean 132 Pulse Ox 100 Oxygen Delivery Method Room Air Room Air 11/12/22 09:37 11/12/22 11:27 11/12/22 12:05 Temperature Temperature Source Pulse Rate 77 73 Respiratory Rate 23 H 16 Respiratory Effort Blood Pressure 164/106 H 168/105 H Blood Pressure Mean 125 126 Pulse Ox 97 97 97 Oxygen Delivery Method Room Air Room Air 11/12/22 13:26 11/12/22 13:38 11/12/22 13:44 Temperature Temperature Source Pulse Rate 73 70 82 Respiratory Rate 16 Respiratory Effort Blood Pressure 169/115 H 156/95 H 165/86 H Blood Pressure Mean 133 Pulse Ox 97 Oxygen Delivery Method Room Air 11/12/22 13:52 Temperature Temperature Source Pulse Rate 75 Respiratory Rate 14 Respiratory Effort Blood Pressure 130/89 H Blood Pressure Mean 102 Pulse Ox 94 Oxygen Delivery Method Room Air Weight Weight: 163 lb 2.273 oz Body Mass Index (BMI) 28.9 Physical Exam Const alert, oriented x3 and no apparent distress General Appearance: cooperative HEENT normocephalic, head/scalp atraumatic, hearing grossly normal bilaterally and moist oral mucous membranes Mouth: oral and palatal mucosa normal Eyes PERRL, EOMs intact bilaterally and conjunctivae normal Neck no lymphadenopathy and supple Resp normal respiratory effort, no retractions, no use of accessory muscles and clear to auscultation bilaterally Cardio regular rate, regular rhythm, S1 normal heart sound, S2 normal heart sound and no murmurs GI normal to inspection, nondistended, normoactive bowel sounds, soft to palpation, non-tender and non-distended Extremity normal to inspection, full ROM and no clubbing, cyanosis or edema Neuro oriented x3, CN's II-XII intact bilaterally, moves all extremities and no focal motor deficits Sensorium / Orientation: awake and alert Motor Exam: strength 5/5 throughout Psych affect normal Results Lab / Micro Data Result Diagrams: 11/12/22 09:30 11/12/22 09:30 Labs: Laboratory Results - last 24 hr 11/12/22 09:30: WBC 6.9, RBC 4.41, Hgb 12.7, Hct 39.5, MCV 89.6, MCH 28.8, MCHC 32.2, RDW Std Deviation 39.5, RDW Coeff of Indira 12.0, Plt Count 187, MPV 11.7, Immature Gran % (Auto) 0.400, Neut % (Auto) 66.5, Lymph % (Auto) 23.6, [place] % (Auto) 8.2, Eos % (Auto) 1.0, Baso % (Auto) 0.3, Absolute Neuts (auto) 4.6, Absolute Lymphs (auto) 1.62, Nucleated RBC % 0 11/12/22 09:30: Sodium 138, Potassium 4.3, Chloride 106, Carbon Dioxide 29.0, Anion Gap 3 L, BUN 17, Creatinine 0.79, Estim Creat Clear Calc 68.91, Est GFR (MDRD) Af Amer 98, Est GFR (MDRD) Non-Af 81, BUN/Creatinine Ratio 21.5 H, Glucose 95, Calcium 9.1, Troponin I High Sens 5 11/12/22 09:30: D-Dimer Quant (PE/DVT) < 0.27 L 11/12/22 12:15: Troponin I High Sens 19 Rhythm Strip Rhythm Strip: Sinus Rhythm Rate: 88 Ectopy: PVC(s) Radiology Impression Chest X-Ray 11/12/22 09:50 IMPRESSION: No acute abnormality is seen. Electronically Signed: Nicho Ortiz MD at 10:37 EST , Assessment & Plan Assessment/Plan (1) Benign essential hypertension: PLAN: Plan #Chest pain to rule out ACS * admit to PCU * initial troponin was only 5, trended up slightly to 19 * CXR showed no acute cardiopulmonary process; EKG showed no acute ST changes * d dimer not elevated * cycle troponins * SL nitroglycerin prn. PO aspirin 81mg daily * for stress test tomorrow if troponins remain negative * #Benign essential hypertension' * BP at time of review was 124/71 * says her BP had been elevated at home, with her systolic in the 180s * on lisinopril; will resume * IV hydralazine prn. * #ADHD; on adderall. #Depression: on citalopram DVT prophylaxis: SCDs Code status: full code Charges/Coding Visit Charges Inpatient E&M: 17265 Init Hosp L2
[2022-11-12] MEDS: Nitroglycerin Oint 1 INCH PACKET 0.5 INCH TD (14:32)
[2022-11-12] MEDS: oxyCODONE 5 MG Tablet PO (15:40)
[2022-11-12 16:41] LABS: Troponin-I HS 16 pg/mL (3.0-54.0)
[2022-11-13] VITALS: BP 130/80; PULSE 77; RESP 16; TEMP 36.7; O2SAT 95
[2022-11-13 05:31] LABS: Absolute Lymphocyte Count 1.67 X10^3/uL (0.83-4.51); Basophil# 0.02 X10^3/uL; Basophil% 0.2 % (0-1); Eosinophil# 0.09 X10^3/uL; Eosinophils% 1.1 % (0-5); Hematocrit 36.3 % (37-47); Lymphocyte # 1.67 X10^3/ul (0.83-4.51); Lymphocyte % 19.6 % (19-41); Mean Corp Hgb Conc 33.1 g/dL (32-36); Mean Corpuscular Hgb 29.7 pg (27.0-32.0); Mean Corpuscular Volume 89.9 fL (81-99); Mean Platelet Vol. 12.3 fl (6.2-12.0); Monocyte# 0.71 X10^3/uL; Monocyte% 8.3 % (0-10); NRBC Flagged by Analyzer 0 % (0-5); Neutrophil # 6.02 X10^3/uL (2.7-7.7); Neutrophil % 70.4 % (47-70); Platelet Count 166 K/mm3 (150-450); RBC Distribution Width SD 39.5 fl (35.1-43.9); Red Blood Count 4.04 M/mm3 (4.2-5.4); White Blood Count 8.5 K/mm3 (4.4-11.0)
--- NOTE | 2022-11-13 05:55 | EKG12_ITS ---
Test Reason : AM EKG Blood Pressure : / mmHG Vent. Rate : 067 BPM Atrial Rate : 067 BPM P-R Int : 178 ms QRS Dur : 092 ms QT Int : 466 ms P-R-T Axes : 048 013 053 degrees QTc Int : 492 ms Normal sinus rhythm T wave abnormality, consider anterior ischemia Abnormal ECG No previous ECGs available Confirmed by CELE ESCALONA, PURA ([id number]), editor school photograph DAISY LUA ([id number]) on 11/20/2022 10:52:09 AM Referred By: GREG Confirmed By:PURA OAKLEY MD
[2022-11-13 06:00] VITALS: BP 120/75; PULSE 82; RESP 17; TEMP 36.6; O2SAT 96
[2022-11-13 06:08] LABS: Anion Gap 6 (5-15); BUN 24 mg/dL (7-18); BUN/Creat Ratio 31.2 RATIO (10-20); Calcium,Total 8.2 mg/dL (8.5-10.1); Chloride 104 mmol/L (98-107); Creatinine, Serum 0.77 mg/dL (0.55-1.02); EST Glomerular Filtration Rate 84 mL/min (>60); Est Glom Filt Rate - Afr Amer 101 mL/min (>60); Glucose 100 mg/dL (74-106); Potassium 4.1 mmol/L (3.5-5.1); Sodium Level 138 mmol/L (136-145)
[2022-11-13] MEDS: Lisinopril 5 MG Tablet PO (07:09)
[2022-11-13 07:45] VITALS: O2SAT 96
--- NOTE | 2022-11-13 08:11 | DCINST_ITS ---
Discharge Instructions Diet Discharge Diet: No restrictions Activity Discharge Activity: Return to Normal Activity Weight Bearing Status: Weight bearing as tolerated Dressing / Incision Call your doctor if you observe: Fever of 101 or Higher, Coldness, Increased Pain, Numbness or Tingling, Change in Color, Inability to urinate, Inability to have a bowel movement, Using more than 1 pad per hour, Shortness of breath, Dizziness, Fainting spells, Swelling in the ankles, Chest pain, Prolonged hiccupping, Increased palpitations (irregular heartbeat) and Calf discomfort Follow Up Care When: IN 2 WEEKS Test Results: Test results from this visit will be discussed in further detail at your follow- up appointment, if applicable. Discharge Plan Admission Admit Date/Time: 11/12/22 14:08 Attending Provider: Raúl Rojas Primary Care Provider: Luciana Meneses Consulting Providers: Brina Galvez Instructions Additional Instructions / Restrictions: Follow-up for PCP for musculoskeletal chest wall pain including left shoulder. She might have early osteoporosis. Her blood pressure needs to be monitored and antihypertensive medication titrated accordingly. Discharge Orders/Prescriptions Prescriptions: Continued citalopram 20 MG tablet 10 mg PO QHS oxybutynin chloride 5 MG tablet 5 mg PO QHS dextroamphetamine-amphetamine [Adderall XR] 30 mg capsule,extended release 24hr 30 mg PO DAILY omeprazole 20 mg capsule,delayed release(DR/EC) 20 mg PO DAILY PRN (Reason: GERD) Lactobacillus acidophilus Capsule 1 cap PO DAILY hydroxyzine HCl 10 mg tablet 5 - 10 mg PO BID PRN (Reason: SLEEP/ANXIETY) Changed lisinopril 5 MG tablet 10 mg PO QHS Qty: 30 0RF Referrals / Follow Up: Luciana Meneses MD [Primary Care Provider] - Pennie Montiel NP, [employer]PA[employer] [Non-Staff] - Disposition Disposition (needs filled in before D/C Order can be placed): Home, Self Care
[2022-11-13 08:27] VITALS: BP 152/91; PULSE 72; RESP 12; TEMP 36.9; O2SAT 96
[2022-11-13] MEDS: oxyCODONE 5 MG Tablet PO (08:32)
[2022-11-13 08:40] LABS: Cholesterol 158 mg/dL (200); High Density Lipoprotein 55 mg/dL; Triglycerides 98 mg/dL; Very Low Density Lipoprotein 20 mg/dL (5-40)
--- NOTE | 2022-11-13 09:00 | NURSING ---
To stress test.
--- NOTE | 2022-11-13 09:31 | DS.PCM_ITS ---
Providers Date of Admission: 11/12/22 Date of Discharge: 11/13/22 Primary Care Physician: Dr. Luciana Meneses MD Reason For Visit: CHEST PAIN Diagnosis Discharge Diagnosis (1) Benign essential hypertension: Status: Chronic Code(s): I10 - Essential (primary) hypertension Plan This 52-year-old female is being admitted for retrosternal/left-sided chest pain with radiation to left arm along with back pain. Patient was admitted in PCU. Serial troponin enzymes were negative. EKG did not show acute ischemia. Patient had nuclear stress test which did not show stress-induced ischemia. Patient has history of chronic left shoulder arthritis and weakness and range of motion in all planes are restricted. Patient might have early osteoporosis. 1. Atypical chest pain most likely musculoskeletal chest pain/GERD: Patient is advised to follow with PCP and evaluate for osteoporosis. Patient also has GERD, chronic acid reflux and heartburn. On PPI. 2. Hypertension: Patient BP fluctuates. In ED it was 124/71 but it goes high to systolic 160s.Lisinopril 5 mg increased to 10 mg daily. Advised follow-up with PCP in 1 week to titrate antihypertensive medication accordingly. 3. ADHD, anxiety and depression: Patient on citalopram and Adderall; continued. * #ADHD; on adderall. DVT prophylaxis: SCDs Code status: full code Discharge medication reconciliation done. Discharge follow-up instructions completed. Discharge process discussed with the patient and all questions were answered to patient's satisfaction. Total time spent, exact 35 minutes on discharge meds reconciliation, examination, coordination of care with nurses and ancillary staff, review of im aging and blood test and discussion with the patient on follow-up instructions. Medications at Discharge Home Medications citalopram 20 mg tablet 10 mg PO QHS DEPRESSION 12/02/17 oxybutynin chloride 5 mg tablet 5 mg PO QHS OVER ACTIVE BLADDER 12/02/17 Lactobacillus acidophilus 1 cap PO DAILY PROBIOTIC 11/12/22 dextroamphetamine-amphetamine ER 30 mg 24hr capsule,extend release (Adderall XR) 30 mg PO DAILY ADHD 11/12/22 hydroxyzine HCl 10 mg tablet 5 - 10 mg PO BID PRN SLEEP/ANXIETY 11/12/22 omeprazole 20 mg capsule,delayed release 20 mg PO DAILY PRN GERD 11/12/22 lisinopril 5 mg tablet 10 mg PO QHS BLOOD PRESSURE #30 tabs 11/13/22 Physical Exam Narrative Seen and examined. Patient was admitted with chest pain retrosternal to left side with radiation to left shoulder. Patient had acid back pain also for 1 week. She has chronic left shoulder arthritis, left shoulder is drooping. Physical exam General: Alert, Oriented x3, Cooperative HEENT: Atraumatic, PERRLA, EOMI, Normocephalic Oral: No Gingival or Mucosal Lesions/ Ulcerations Neck: Supple, No JVD, Negative Carotid Bruits Chest wall/lungs: No reproducible tenderness over left upper chest or clavicle. Air entry diminished in bilateral lung bases. No crepitation/rhonchi Cardiovascular: Regular rate, Regular Rhythm, Normal S1, Normal S2, No murmurs Abdomen: Bowel Sounds Present, Soft, Non Tender, Non-Distended : No renal angle tenderness. No suprapubic tenderness. Extremities: No edema, Capillary Refill Less than 3 Seconds Skin: No rashes, No breakdown Musculoskeletal: Mild tenderness over left shoulder. ROM of left shoulder is restricted and left shoulder is drooping. Neurological: Cranial nerves II-XII grossly intact, DTR 2+/4 and Symmetrical, Neuro grossly intact Psych/Mental Status: Normal Affect, Appropriate. Weight / BMI Weight Weight: 160 lb 4.417 oz Body Mass Index (BMI) 28.3 ABG / Lab / Microbiology Data Result Diagrams: 11/13/22 04:34 11/13/22 04:34 Laboratory: Laboratory Results - last 24 hr 11/12/22 09:30: WBC 6.9, RBC 4.41, Hgb 12.7, Hct 39.5, MCV 89.6, MCH 28.8, MCHC 32.2, RDW Std Deviation 39.5, RDW Coeff of Indira 12.0, Plt Count 187, MPV 11.7, Immature Gran % (Auto) 0.400, Neut % (Auto) 66.5, Lymph % (Auto) 23.6, [place] % (Auto) 8.2, Eos % (Auto) 1.0, Baso % (Auto) 0.3, Absolute Neuts (auto) 4.6, Absolute Lymphs (auto) 1.62, Nucleated RBC % 0 11/12/22 09:30: Sodium 138, Potassium 4.3, Chloride 106, Carbon Dioxide 29.0, Anion Gap 3 L, BUN 17, Creatinine 0.79, Estim Creat Clear Calc 68.91, Est GFR (MDRD) Af Amer 98, Est GFR (MDRD) Non-Af 81, BUN/Creatinine Ratio 21.5 H, Glucose 95, Calcium 9.1, Troponin I High Sens 5 11/12/22 09:30: D-Dimer Quant (PE/DVT) < 0.27 L 11/12/22 12:15: Troponin I High Sens 19 11/12/22 15:50: Troponin I High Sens 16 11/13/22 04:34: WBC 8.5, RBC 4.04 L, Hgb 12.0, Hct 36.3 L, MCV 89.9, MCH 29.7, MCHC 33.1, RDW Std Deviation 39.5, RDW Coeff of Indira 12.0, Plt Count 166, MPV 12.3 H, Immature Gran % (Auto) 0.400, Neut % (Auto) 70.4 H, Lymph % (Auto) 19.6, [place] % (Auto) 8.3, Eos % (Auto) 1.1, Baso % (Auto) 0.2, Absolute Neuts (auto) 6.0, Absolute Lymphs (auto) 1.67, Nucleated RBC % 0 11/13/22 04:34: Sodium 138, Potassium 4.1, Chloride 104, Carbon Dioxide 28.0, Anion Gap 6, BUN 24 H, Creatinine 0.77, Estim Creat Clear Calc 70.70, Est GFR (MDRD) Af Amer 101, Est GFR (MDRD) Non-Af 84, BUN/Creatinine Ratio 31.2 H, Glucose 100, Calcium 8.2 L 11/13/22 04:34: Triglycerides 98, Cholesterol 158, LDL Cholesterol 83, VLDL Cholesterol 20, HDL Cholesterol 55 Radiography Diagnostic Testing: Radiology Impression Chest X-Ray 11/12/22 09:50 IMPRESSION: No acute abnormality is seen. Electronically Signed: Nicho Ortiz MD at 10:37 EST , Meaningful Use Info Meaningful Use Diagnoses (Choose all that apply): None applicable Discharge Plan Admission Admit Date/Time: 11/12/22 14:08 Attending Provider: Raúl Rojas Primary Care Provider: Luciana Meneses Consulting Providers: Brina Galvez Instructions Additional Instructions / Restrictions: Follow-up for PCP for musculoskeletal chest wall pain including left shoulder. She might have early osteoporosis. Her blood pressure needs to be monitored and antihypertensive medication titrated accordingly. Discharge Orders/Prescriptions Prescriptions: Continued citalopram 20 MG tablet 10 mg PO QHS oxybutynin chloride 5 MG tablet 5 mg PO QHS dextroamphetamine-amphetamine [Adderall XR] 30 mg capsule,extended release 24hr 30 mg PO DAILY omeprazole 20 mg capsule,delayed release(DR/EC) 20 mg PO DAILY PRN (Reason: GERD) Lactobacillus acidophilus Capsule 1 cap PO DAILY hydroxyzine HCl 10 mg tablet 5 - 10 mg PO BID PRN (Reason: SLEEP/ANXIETY) Changed lisinopril 5 MG tablet 10 mg PO QHS Qty: 30 0RF Referrals / Follow Up: Luciana Meneses MD [Primary Care Provider] - Pennie Montiel NP, [employer] HELPER-C [Non-Staff] - Disposition Disposition (needs filled in before D/C Order can be placed): Home, Self Care Charges/Coding Visit Charges Inpatient E&M: 09001 Disch Hosp >30min
[2022-11-13] MEDS: Citalopram 10 MG Tablet PO (11:10)
[2022-11-13] MEDS: Tolterodine Tartrate 2 MG CAP.SA PO (11:10)
--- NOTE | 2022-11-13 12:46 | STRESSREP ---
Stress Test Report Date: 11/13/2022 Procedure: Pharmacologic stress nuclear imaging study Indications: Chest pain Consent: Per the patient Procedure: The patient underwent pharmacologic (Regadenoson 0.4mg ) evaluation with a peak heart rate of 100 beats per minute (60%predicted maximal heart rate) and a peak blood pressure of 168/100 mmHg. The baseline ECG demonstrated normal sinus rhythm. The peak pharmacologic ECG demonstrated no ischemic changes. There were no cardiac dysrhythmias pretest, during pharmacologic infusion, or recovery. There was no complaint of chest discomfort during pharmacologic infusion or recovery. The patient was injected with 11.5 millicuries of technetium 99m Cardiolite and subsequently rest SPECT Cardiolite nuclear imaging was obtained in the horizontal long, vertical long, and short axis views. The patient underwent pharmacologic (Regadenoson) evaluation. The patient was injected with 34.3 millicuries of technetium 99m Cardiolite and subsequently stress SPECT Cardiolite nuclear imaging was obtained in the horizontal long, vertical long, and short axis views. A gated Cardiolite study at peak stress was obtained. The examination was stopped secondary to completion of protocol. Rest and stress SPECT Cardiolite nuclear imaging status post realignment, normalization, and attenuation correction demonstrate no reversible or fixed perfusion defects. There is end systolic thickening and brightening. The gated Cardiolite study demonstrates myocardial thickening and inward wall motion. The reported LVEF is 51%. Impression: 1. Pharmacologic (Regadenoson) evaluation 2. Peak pharmacologic ECG with no ischemic changes. 3. There were no cardiac dysrhythmias pretest, during pharmacologic infusion, or recovery. 5. No fixed or reversible perfusion defects. 6. The gated Cardiolite study reports an LVEF of 51%. This note was generated with Immediately software. It may contain incorrect words, spelling, and punctuation that were not noted in checking the note before signing.
[2022-11-13 13:09] VITALS: BP 163/93; PULSE 73; RESP 12; TEMP 36.8; O2SAT 100
--- NOTE | 2022-11-13 14:52 | PHA.DC.MR ---
Pharmacy Service has performed discharge medication reconciliation for this patient. No new medications at time of discharge review. Medications reviewed are from previously reported home medications. Home Medications citalopram 20 mg tablet 10 mg PO QHS DEPRESSION 12/02/17 oxybutynin chloride 5 mg tablet 5 mg PO QHS OVER ACTIVE BLADDER 12/02/17 Lactobacillus acidophilus 1 cap PO DAILY PROBIOTIC 11/12/22 dextroamphetamine-amphetamine ER 30 mg 24hr capsule,extend release (Adderall XR) 30 mg PO DAILY ADHD 11/12/22 hydroxyzine HCl 10 mg tablet 5 - 10 mg PO BID PRN SLEEP/ANXIETY 11/12/22 omeprazole 20 mg capsule,delayed release 20 mg PO DAILY PRN GERD 11/12/22 lisinopril 5 mg tablet 10 mg PO QHS BLOOD PRESSURE #30 tabs 11/13/22 The patient's discharge medication list was reviewed for discrepancies and discrepancies were resolved.
== END 2022-11-13 11:20 | disposition home or self-care (01) ==
LOC: ED 11:27 → PCU 14:21
PROVIDERS: Admitting Provider Student in an Organized Health Care Education/Training Program; Emergency Provider Emergency Medicine; PCP Internal Medicine; Visit Provider Internal Medicine
DX: R07.89 Other chest pain (principal); I10 Essential (primary) hypertension; F90.9 Attention-deficit hyperactivity disorder, unspecified type; F41.9 Anxiety disorder, unspecified; K21.9 Gastro-esophageal reflux disease without esophagitis; F32.A Depression, unspecified; Z79.899 Other long term (current) drug therapy; F17.200 Nicotine dependence, unspecified, uncomplicated
CPT/HCPCS: 36415; 71046; 78452; 80048; 80061; 84484; 85025; 85379; 93005; 93017; 96374; 96375; 99221; 99285; A9500; A4216; G0378; J2785

== ENCOUNTER 2023-10-04 06:46 | Emergency (ER) | payer OTHER, SELFPAY ==
[2023-10-04 06:48] VITALS: BP 155/91; PULSE 80; RESP 18; TEMP 36.6; O2SAT 97; BMI 27.6
[2023-10-04 06:55] VITALS: BP 155/91; PULSE 80; RESP 18; TEMP 36.6; O2SAT 97
--- NOTE | 2023-10-04 07:13 | EDS_ITS ---
HPI History of Present Illness Chief Complaint: Fever Detail of Chief Complaint: Fever and not feeling well Informant: patient Narrative Narrative: Patient presents with a fever and complaint of not feeling well since yesterday. Patient states that she was exposed to somebody with COVID last week. She has minimal cough. She has had dry heaves and vomiting. Mild upper abdomen pain. She complains of a headache and neck pain and bodyaches. She denies urinary symptoms such as dysuria or urgency or frequency. She has had no diarrhea. [facility] Medical History History of Hypertension SUDDEN WEIGHT LOSS Home Medications citalopram 20 mg tablet 10 mg PO QHS DEPRESSION 12/02/17 [History Last Taken 11/11/22] oxybutynin chloride 5 mg tablet 5 mg PO QHS OVER ACTIVE BLADDER 12/02/17 [History Last Taken 11/11/22] Lactobacillus acidophilus 1 cap PO DAILY PROBIOTIC 11/12/22 [History Last Taken 11/10/22] dextroamphetamine-amphetamine ER 30 mg 24hr capsule,extend release (Adderall XR) 30 mg PO DAILY ADHD 11/12/22 [History Last Taken 11/06/22] hydroxyzine HCl 10 mg tablet 5 - 10 mg PO BID PRN SLEEP/ANXIETY 11/12/22 [History Last Taken Unknown] omeprazole 20 mg capsule,delayed release 20 mg PO DAILY PRN GERD 11/12/22 [History Last Taken Unknown] lisinopril 5 mg tablet 10 mg (2 x 5 mg) PO QHS BLOOD PRESSURE #30 tabs 11/13/22 [Rx Last Taken Unknown] ondansetron 4 mg disintegrating tablet 4 mg PO Q8H PRN PRN Nausea #10 tabs 10/04/23 [Rx Last Taken Unknown] Allergy/AdvReac Type Severity Reaction Status Date / Time atomoxetine [From Strattera] Allergy Chest Verified 10/04/23 06:47 tightness sulfamethoxazole Allergy Nausea Verified 10/04/23 06:47 [From Bactrim] trimethoprim [From Bactrim] Allergy Nausea Verified 10/04/23 06:47 Surgical History History of cholecystectomy History of hysterectomy Social History Smoking Status: Current every day smoker tobacco type: cigarettes alcohol intake: current alcohol intake frequency: holidays/special occasions only ROS ROS ED Review of Systems ROS Unobtainable: other Constitutional Constitutional ED: Reports fever(s) and lethargy; Denies chills, sweats or weight loss Eyes Eyes: Denies blurry vision, change in vision or diplopia ENT ENT ED: Denies rhinorrhea or sore throat Cardiovascular Cardiovascular: Denies chest pain, orthopnea or racing heartbeat Respiratory/Chest Respiratory/Chest: Reports cough; Denies dyspnea, dyspnea on exertion, orthopnea or sputum Gastrointestinal Gastrointestinal: Denies abdominal pain, diarrhea, nausea or vomiting Genitourinary Genitourinary ED: Denies dysuria, hematuria or urinary frequency Musculoskeletal Musculoskeletal: Reports neck pain; Denies arthralgias, back pain or myalgias Integumentary Denies abscess, Abrasions or rash Neurologic Neurologic: Reports headache(s); Denies weakness Psychiatric Psychiatric: Denies anxiety, depression or suicidal thoughts Endocrine Endocrinology: Denies polydipsia, polyphagia or polyuria Hematologic/Lymphatic Hematologic/Lymphatic: Denies easy bleeding, easy bruising or lymphadenopathy Allergic/Immunologic Allergic/Immunologic ED: Denies mouth swelling, tongue swelling or urticaria EXAM Physical Exam Const Vital Signs: 10/04/23 06:48 10/04/23 06:55 Temperature 97.9 F 97.9 F Temperature Source Oral Oral Pulse Rate 80 80 Respiratory Rate 18 18 Blood Pressure 155/91 H 155/91 H Blood Pressure Mean 112 112 Pulse Ox 97 97 Oxygen Delivery Method Room Air Room Air Positive well nourished and well developed General Appearance ED: well developed and NAD HEENT Reports TM's clear and moist mucous membranes normocephalic and atraumatic; Negative for trauma or tenderness Tympanic Membrane ED: Yes TM's clear Eyes PERRL and EOMs intact bilaterally General Eye ED: Negative for pale conjunctiva or scleral icterus Neck no lymphadenopathy, supple and no JVD General: Negative for tenderness Chest Wall inspection of chest normal and palpation of chest normal Chest: Negative for tenderness Resp normal respiratory effort and clear to auscultation bilaterally Effort and Inspection: Negative for respiratory distress or pain with movement Auscultation: Negative for rhonchi, wheezes or diminished lung sounds Cardio regular rate, regular rhythm, S1 normal heart sound, S2 normal heart sound and no murmurs Peripheral Pulses: pulses 2+ throughout GI normal to inspection, nondistended, normoactive bowel sounds, soft to palpation, non-tender, non-distended and no masses Back/Spine no CVA tenderness and no thoracic nor lumbar tenderness Extremity normal to inspection General Extremety ED: Negative for edema General Extremity: Negative for edema Neuro oriented x3, CN's II-XII intact bilaterally, no sensory deficits noted and gait normal Sensorium / Orientation: awake, alert, oriented to person, oriented to place and oriented to time Motor Exam: strength 5/5 throughout and strength abnormal Psych mental status grossly normal Skin no rashes or lesions noted and no wounds MDM MDM MDM Narrative Medical decision making narrative: Patient presents with multiple complaints. Vital signs stable. IV line established. CBC with differential obtained showed white count of 8.8 with hemoglobin of 12.9 and platelet count of 135. Chemistries unremarkable. Urinalysis was negative for infection. COVID and flu testing obtained was positive for COVID-19. While in department she received Zofran and Toradol. She did feel improved. She received normal saline. Discussed results with patient. Will discharge to home. Discussed treatment with oral medications for COVID however she declines at this time after discussion of risk and benefit. Patient advised to return if increasing shortness of breath or condition should worsen anyway. Lab Data Attestation: I reviewed the patient's lab results. Labs: Laboratory Results - last 24 hr 10/04/23 10/04/23 07:30 07:50 WBC 8.8 RBC 4.38 Hgb 12.9 Hct 39.4 MCV 90.0 MCH 29.5 MCHC 32.7 RDW Std Deviation 39.3 RDW Coeff of Indira 12.0 Plt Count 135 L MPV 12.6 H Immature Gran % (Auto) 0.200 Neut % (Auto) 83.3 H Lymph % (Auto) 2.6 L [place] % (Auto) 13.7 H Eos % (Auto) 0.1 Baso % (Auto) 0.1 Absolute Neuts (auto) 7.3 Absolute Lymphs (auto) 0.23 L Nucleated RBC % 0 Differential Comment SCANNED Sodium 134 L Potassium 3.7 Chloride 100 Carbon Dioxide 28.0 Anion Gap 6 BUN 13 Creatinine 0.95 Estim Creat Clear Calc 56.65 Est GFR (MDRD) Af Amer 79 Est GFR (MDRD) Non-Af 65 BUN/Creatinine Ratio 13.7 Glucose 126 H Calcium 9.5 Urine Color Yellow Urine Clarity Clear Urine pH 7.0 Ur Specific [place] 1.015 Urine Protein 30 H Urine Glucose (UA) 50 H Urine Ketones 50 H Urine Occult Blood 10 H Urine Nitrite Negative Urine Bilirubin Negative Urine Urobilinogen Normal Ur Leukocyte Esterase Negative Urine RBC 0 SEEN Urine WBC 0 SEEN Ur Squamous Epith Cells 0 SEEN Amorphous Sediment 1+ Urine Bacteria 0 SEEN Urine Mucus 0 SEEN Discharge Plan Triage Chief Complaint: Fever ED Provider: Yulissa Moore Dx/Rx/DC Orders Clinical Impression: COVID-19 Instructions: Caring for Someone Who Has COVID-19 Prescriptions: New ondansetron [ondansetron] 4 mg tablet,disintegrating 4 mg PO Q8H PRN PRN (Reason: Nausea) Qty: 10 0RF No Action citalopram 20 MG tablet 10 mg PO QHS oxybutynin chloride 5 MG tablet 5 mg PO QHS dextroamphetamine-amphetamine [Adderall XR] 30 mg capsule,extended release 24hr 30 mg PO DAILY omeprazole 20 mg capsule,delayed release(DR/EC) 20 mg PO DAILY PRN (Reason: GERD) Lactobacillus acidophilus Capsule 1 cap PO DAILY hydroxyzine HCl 10 mg tablet 5 - 10 mg PO BID PRN (Reason: SLEEP/ANXIETY) lisinopril 5 MG tablet 10 mg PO QHS Qty: 30 0RF Primary Care Provider: Luciana Meneses Referrals: Luciana Meneses MD [Primary Care Provider] - 5-7 Days Disposition Disposition: Home, Self Care Discharge Date/Time: 10/04/23 09:00
[2023-10-04] MEDS: Ondansetron 4 MG/2 ML Vial IV (07:40)
[2023-10-04] MEDS: Ketorolac 15 MG/ML Vial IV (07:40)
[2023-10-04] MEDS: 0.9% Normal Saline (1000mL) 1,000 ML 1000 ML IV (07:40)
[2023-10-04 07:58] LABS: Bacteria 0 SEEN /hpf (None Seen); Mucous, Urine 0 SEEN /hpf (<or=2+); Red Blood Cells-Urine 0 SEEN /hpf (0-5); Squamous Epithelial Cells - UA 0 SEEN /hpf (5-10); White Blood Cells 0 SEEN /hpf (0-5)
[2023-10-04 07:58] LABS: Absolute Lymphocyte Count 0.23 X10^3/uL (0.83-4.51); Absolute Neutrophil Count 7.3 X10^3/uL (2.0-7.7); Basophil# 0.01 X10^3/uL; Basophil% 0.1 % (0-1); Eosinophil# 0.01 X10^3/uL; Eosinophils% 0.1 % (0-5); Hematocrit 39.4 % (37-47); Hemoglobin 12.9 g/dL (12.0-15.0); Lymphocyte # 0.23 X10^3/ul (0.83-4.51); Lymphocyte % 2.6 % (19-41); Mean Corp Hgb Conc 32.7 g/dL (32-36); Mean Corpuscular Hgb 29.5 pg (27.0-32.0); Mean Platelet Vol. 12.6 fl (6.2-12.0); Monocyte% 13.7 % (0-10); NRBC Flagged by Analyzer 0 % (0-5); Neutrophil # 7.32 X10^3/uL (2.7-7.7); Neutrophil % 83.3 % (47-70); POSITIVE DIFFERENTIAL YES; Platelet Count 135 K/mm3 (150-450); RBC Distribution Width SD 39.3 fl (35.1-43.9); Red Blood Count 4.38 M/mm3 (4.2-5.4); White Blood Count 8.8 K/mm3 (4.4-11.0)
[2023-10-04 07:59] LABS: Color, Urine Yellow (Yellow); Glucose, Dipstick 50 mg/dl (Normal); Ketone-Dipstick 50 mg/dl (Negative); Leukocyte Esterase-Dipstick Negative /ul (Negative); Nitrite-Dipstick Negative (Negative); Occult Blood-Urine 10 /ul (Negative); Protein-Dipstick 30 mg/dl (Negative); Specific Gravity, Urine 1.015 (1.002-1.030); Urine Bilirubin Dipstick Negative (Negative); Urine Clarity Clear (Clear); Urine Urobilinogen Normal (Normal)
[2023-10-04 08:01] LABS: Differential Indicated SCAN CRITERIA MET
[2023-10-04 08:07] LABS: Anion Gap 6 (5-15); BUN 13 mg/dL (7-18); BUN/Creat Ratio 13.7 RATIO (10-20); Calcium,Total 9.5 mg/dL (8.5-10.1); Chloride 100 mmol/L (98-107); Creatinine, Serum 0.95 mg/dL (0.55-1.02); EST Glomerular Filtration Rate 65 mL/min (>60); Est Glom Filt Rate - Afr Amer 79 mL/min (>60); Estimated Creatinine Clearance 56.65 ml/min; Glucose 126 mg/dL (74-106); Potassium 3.7 mmol/L (3.5-5.1); Sodium Level 134 mmol/L (136-145)
[2023-10-04 08:36] LABS: Amorphous Sediment 1+
[2023-10-04 08:40] LABS: Differential Comment SCANNED
== END 2023-10-04 09:00 | disposition home or self-care (01) ==
PROVIDERS: Emergency Provider Emergency Medicine; PCP Internal Medicine; Visit Provider Emergency Medicine
DX: U07.1 COVID-19 (principal); I10 Essential (primary) hypertension; F17.210 Nicotine dependence, cigarettes, uncomplicated; Z79.899 Other long term (current) drug therapy
CPT/HCPCS: 80048; 81001; 85025; 87428; 96361; 96374; 96375; 99282; J7030; A4216; J2405

== ENCOUNTER → 2024-04-19 | Outpatient (CLI) | payer OTHER, SELFPAY ==
[2024-04-19 12:00] LABS: Absolute Lymphocyte Count 1.98 X10^3/uL (0.83-4.51); Absolute Neutrophil Count 3.8 X10^3/uL (2.0-7.7); Basophil# 0.03 X10^3/uL; Basophil% 0.5 % (0-1); Eosinophil# 0.07 X10^3/uL; Eosinophils% 1.1 % (0-5); Hematocrit 40.3 % (37-47); Hemoglobin 12.8 g/dL (12.0-15.0); Lymphocyte # 1.98 X10^3/ul (0.83-4.51); Lymphocyte % 31.2 % (19-41); Mean Corp Hgb Conc 31.8 g/dL (32-36); Mean Corpuscular Hgb 29.4 pg (27.0-32.0); Mean Corpuscular Volume 92.4 fL (81-99); Monocyte# 0.44 X10^3/uL; Monocyte% 6.9 % (0-10); NRBC Flagged by Analyzer 0 % (0-5); Neutrophil # 3.81 X10^3/uL (2.7-7.7); Platelet Count 196 K/mm3 (150-450); RBC Distribution Width CV 11.9 % (11.6-14.6); RBC Distribution Width SD 40.7 fl (35.1-43.9); Red Blood Count 4.36 M/mm3 (4.2-5.4); White Blood Count 6.4 K/mm3 (4.4-11.0)
[2024-04-19 12:24] LABS: Hemoglobin A1c 5.1 % (3.8-5.6)
[2024-04-19 12:25] LABS: AST(SGOT) 6 U/L (15-37); Alanine Aminotransfer ALT/SGPT 19 U/L (13-56); Albumin, Serum 3.7 g/dL (3.2-5.0); Alkaline Phosphatase 73 U/L (45-117); Anion Gap 5 (5-15); BUN 22 mg/dL (7-18); BUN/Creat Ratio 26.5 RATIO (10-20); Calcium,Total 9.4 mg/dL (8.5-10.1); Chloride 104 mmol/L (98-107); Cholesterol 192 mg/dL (200); Creatinine, Serum 0.83 mg/dL (0.55-1.02); EST Glomerular Filtration Rate 76 mL/min (>60); Est Glom Filt Rate - Afr Amer 92 mL/min (>60); Globulin 3.8 g/dL (2.2-4.2); Glucose 92 mg/dL (74-106); High Density Lipoprotein 59 mg/dL; Protein, Total 7.5 g/dL (6.4-8.2); Sodium Level 138 mmol/L (136-145); T4 Free Direct 0.91 ng/dL (0.76-1.46); Thyroid Stim Hormone (TSH) 0.63 uIU/mL (0.358-3.74); Triglycerides 95 mg/dL; Very Low Density Lipoprotein 19 mg/dL (5-40)
[2024-04-21 13:58] LABS: Vitamin D,25 Hydroxy 39.8 ng/mL
== END | disposition home or self-care (01) ==
LOC: BFHLAB 10:41
PROVIDERS: PCP Nurse Practitioner Family; Referring Provider Nurse Practitioner Family; Visit Provider Nurse Practitioner Family
DX: Z00.01 Encounter for general adult medical examination with abnormal findings (principal); I10 Essential (primary) hypertension; E04.1 Nontoxic single thyroid nodule; R73.01 Impaired fasting glucose; E55.9 Vitamin D deficiency, unspecified
CPT/HCPCS: 36415; 80053; 80061; 82306; 83036; 84439; 84443; 85025

== ENCOUNTER → 2024-05-02 | Outpatient (CLI) | payer OTHER, SELFPAY ==
--- NOTE | 2024-05-02 07:33 | BI_ITS ---
MAMMOGRAPHY - BILATERAL SCREENING REASON FOR EXAM: Female, 53 years old. Routine annual screening examination. PERTINENT HISTORY: Non-contributory. TECHNIQUE: Digital bilateral breast krystle (3D mammographic acquisition) in the CC and MLO projections. 2-D mediolateral oblique (MLO) and craniocaudad (CC) views of both breasts were obtained. CAD: Full Field Digital Mammography with Computer Added Detection was performed. COMPARISON: Comparison is made with prior study dated March 21, 2021. FINDINGS: Breast Composition: The breasts are extremely dense, which lowers the sensitivity of mammography. There are no dominant masses or suspicious calcifications. No other significant abnormalities are identified. There has been no significant change since the prior study. BI/SCRN MAMM (CAD)W/KRYSTLE BILAT IMPRESSION: Stable bilateral screening mammogram. Yearly follow-up mammogram recommended. (A) ASSESSMENT CATEGORY: BIRADS Category 1: Negative. A letter regarding these results will be sent to the patient by the facility within 30 days. Approximately 10% of breast cancers are not detected by mammography. A normal mammogram should not delay biopsy of a clinically suspicious abnormality. [id number] Electronically Signed: Nicho Ortzi MD at 9:09 EDT ,
== END | disposition home or self-care (01) ==
LOC: OPBI 07:32
PROVIDERS: PCP Nurse Practitioner Family; Referring Provider Nurse Practitioner Family; Visit Provider Nurse Practitioner Family
DX: Z12.31 Encounter for screening mammogram for malignant neoplasm of breast (principal)
CPT/HCPCS: 77063; 77067